=== PATIENT | male | born 1960 | race Caucasian/White ===

== ENCOUNTER 2017-12-24 10:26 | Day surgery (SDC) | payer OTHER ==
[~2017-12-24] VITALS: Ht 182.9 cm; Wt 78.7 kg
[~2017-12-24 10:26] MED LIST: CEPH500 PO; HYDACE5 PO; SULTRIDS PO
== END 2017-12-24 12:44 | disposition home or self-care (01) ==
LOC: ORSCSDS 10:26
PROVIDERS: Ophthalmology
PROC: 08RJ3JZ Replacement of Right Lens with Synthetic Substitute, Percutaneous Approach (ICD-10-PCS; principal; 2017-12-24 12:00)
DX: H25.11 Age-related nuclear cataract, right eye (principal)
CPT/HCPCS: J2250; J7040; V2632

== ENCOUNTER 2021-10-18 01:11 | Day surgery (SDC) | payer OTHER | END 2021-10-18 22:57 | disposition home or self-care (01) | LOC: WOUND 01:11 | DX: C44.91 Basal cell carcinoma of skin, unspecified (principal); L03.811 Cellulitis of head [any part, except face] | CPT/HCPCS: A9270; G0463 ==

== ENCOUNTER 2021-10-25 00:21 | Day surgery (SDC) | payer OTHER | END 2021-10-25 23:07 | disposition home or self-care (01) | LOC: WOUND 00:21 | DX: S01.80XD Unspecified open wound of other part of head, subsequent encounter (principal); C44.319 Basal cell carcinoma of skin of other parts of face | CPT/HCPCS: G0463 ==

== ENCOUNTER → 2023-07-06 | Outpatient (CLI) | payer OTHER | END | disposition home or self-care (01) | LOC: LAB 13:32 → LAB SHORT 13:32 | DX: S91.002A Unspecified open wound, left ankle, initial encounter (principal); L08.9 Local infection of the skin and subcutaneous tissue, unspecified | CPT/HCPCS: 87070; 87075; 87077; 87147; 87186; 87205 ==

== ENCOUNTER 2023-11-16 08:00 | Day surgery (SDC) | payer OTHER | END 2023-11-16 23:59 | disposition home or self-care (01) | LOC: WOUND 08:00 | DX: T25.212D Burn of second degree of left ankle, subsequent encounter (principal); X08.8XXD Exposure to other specified smoke, fire and flames, subsequent encounter ==

== ENCOUNTER 2023-11-23 00:21 | Day surgery (SDC) | payer OTHER | END 2023-11-23 22:38 | disposition home or self-care (01) | LOC: WOUND 00:21 | PROC: 2W2RX4Z Dressing of Left Lower Leg using Bandage (ICD-10-PCS; principal; 2023-11-23) | DX: T25.212S Burn of second degree of left ankle, sequela (principal); T25.212A Burn of second degree of left ankle, initial encounter | CPT/HCPCS: G0463 ==

== ENCOUNTER 2023-11-30 03:59 | Day surgery (SDC) | payer OTHER | END 2023-11-30 22:45 | disposition home or self-care (01) | LOC: WOUND 03:59 | DX: T25.212S Burn of second degree of left ankle, sequela (principal); X03 Exposure to controlled fire, not in building or structure; T25.212A Burn of second degree of left ankle, initial encounter | CPT/HCPCS: G0463 ==